=== PATIENT | female | born 1940 | race Caucasian/White ===

== ENCOUNTER 2021-01-27 10:12 | Outpatient (REF) | payer MEDICARE, SELFPAY ==
--- NOTE | 2021-01-27 17:31 | PFT_ITS ---
INDICATION: Bronchitis, COPD. SPIROMETRY: The FEV1 to FVC of 62% with an FEV1 of 1 L which is 56% predicted, an FVC of 1.58 L which is 66% predicted. No significant response to bronchodilators noted. The maximum voluntary ventilation 53% predicted. To note, the [id number] was 26% predicted. LUNG VOLUMES: Total lung capacity 95% predicted. DIFFUSION CAPACITY: DLCO 62% predicted. COMPARISON: None available. INTERPRETATION: There is an obstructive ventilatory defect consistent moderate to severe COPD. No significant response to bronchodilators noted. The patient does have significant small airways disease. There is also moderate decrease in maximum voluntary ventilation secondary to deconditioning and also the possibility of worsening dynamic inspiratory capacity. Lung volumes do demonstrate a trend of air trapping. The patient does have a mild to moderate diffusion impairment. Clinical correlation warranted. MD CHOCO Rodriguez/MODL / [id number]
== END 2021-01-27 10:13 | disposition home or self-care (01) ==
LOC: HO.RESP 10:12
PROVIDERS: Visit Provider Hospitalist
DX: J41.0 Simple chronic bronchitis (principal)
CPT/HCPCS: 94060; 94727; 94729; 99212

== ENCOUNTER → 2022-01-18 12:49 | Outpatient (BNVA) | payer MEDICARE, SELFPAY | PROVIDERS: PCP Nurse Practitioner Gerontology; Visit Provider Hospitalist | DX: J41.0 Simple chronic bronchitis (principal); R01.1 Cardiac murmur, unspecified; Z79.899 Other long term (current) drug therapy | CPT/HCPCS: 99212 ==

== ENCOUNTER → 2023-02-01 13:49 | Outpatient (BNVA) | payer MEDICARE, SELFPAY | PROVIDERS: PCP Nurse Practitioner Gerontology; Visit Provider Hospitalist | DX: J41.0 Simple chronic bronchitis (principal); R01.1 Cardiac murmur, unspecified; Z87.891 Personal history of nicotine dependence; Z79.899 Other long term (current) drug therapy | CPT/HCPCS: 99212 ==

== ENCOUNTER 2024-02-02 15:26 | Outpatient (AMB) | payer MEDICARE, SELFPAY ==
--- NOTE | 2024-02-02 15:31 | MHC.OFFVIS ---
Vital Signs 02/02/24 15:32 Height 5 ft 2 in Weight 125 lb BMI 22.9 Pulse 52 Pulse Source Pulse Oximeter Pulse Oximetry (%) 95 Oxygen Delivery Method Room Air Intake Visit Reasons: COPD Manager Strategy & Account Required: No Allergies azathioprine [Imuran] Allergy (Severe, Verified 02/02/24 15:33) Infection losartan Allergy (Severe, Verified 02/02/24 15:33) Swelling Lips HPI Comments Details: The patient is a 83-year-old woman with a known history of COPD. Her last PFTs demonstrating an FEV1 of 1.08 L. the patient has been on Anoro with good effect. She was participating in pulmonary rehabilitation, but, now she just walking at home is staying busy in active. She does have cough a ing at times but usually nonproductive. Mild in severity. She is able to sleep well at nighttime. She denies any headaches. She is having more respiratory symptoms with issue mid 80 but she stay indoors. We talked about the importance of looking at the air quality including the pollution level, low ground [place] and following the humidity. During the next visit will plan to do an x-ray and pulmonary function studies. If however she develops any worsening symptoms or any new symptoms prior to that she is to call for early evaluation. 01/27/2021 the patient is here for pulmonary follow-up visit. Overall she is doing well. She states that during the pandemic she state home a lot. She gained weight and she has not been as active. This is concerned her because she knows that her respiratory capacity has decreased. She does have shortness of breath with activity. She does not use oxygen. She does use her rescue inhaler prior to exercise otherwise she typically does not needed. She takes a maintenance medication daily without any issues of adherence. She did undergo pulmonary function studies which we personally reviewed demonstrating a moderate to severe obstructive ventilatory defect. It appears that based on her PFTs several years ago they are stable. I reassured her that it appears that her lung capacity is staining very well. Her diffusing capacity is also reassuring to be in the mid 60s. Patient is wondering what other activities she can not participate on and I did tell her that she can consider getting a Harmonica in working on her airway resistance been continue to walk and exercise regularly. The patient also will undergo a chest x-ray. 01/18/2022 the patient is here for a pulmonary follow-up visit. She consented to do relatively well. The patient has been on the Anoro daily. We did talk about additional therapies but at this point she is content with her medication. She continues to have dyspnea on exertion. Has not seem to worsen. Moderate severity. The patient does have moderate to severe COPD based on her last PFTs. Will request a chest x-ray at this time. In the meantime she continues to have a systolic murmur. She did follow-up with cardiology seems to be stable and be continued to be monitor closely. Otherwise the patient is without any other complaints. 02/01/2023 the patient is here for a pulmonary follow-up visit. The patient is doing very well. She has been seen since last year. She continues use the Anoro with very good effect. Has not required any prednisone. She does not require rescue inhaler. The patient does have a murmur but she has an echocardiogram scheduled for the summer. 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 Does not appear to have any sequela of any symptoms. She did not have an x-ray but will have an x-ray for next visit. In addition to that we did review her last PFTs demonstrating moderate COPD. Otherwise patient is doing well will hold off on additional PFTs specially since the patient is doing well. 02/02/2024 the patient is here for a pulmonary follow-up visit. Overall the patient has been doing well since last spoke. She does continue to use the Anoro daily. She also uses the rescue inhaler prior to exercise the seems to be working well for her. 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 No complications. The patient still feeling shortness of breath. She is participating in the cardiac rehab. Afterwards I did recommend she consider pulmonary rehab or online rehabilitation. She does have a treadmill and she will continue to exercise regularly. She did have a chest x-ray back in July 2023 which I personally reviewed. The patient does have increased cardiac size in the aortic valve is in place. No underlying acute lung conditions noted. The patient will also undergo a pacemaker placement. I hope that this also helps her respiratory symptoms and her energy. Otherwise patient is without any other complaints. She will get her Prevnar 20 vaccine whenever still and she also will get her RSV and FLU vaccine in the fall. [facility] Medical History (Updated 01/18/22 @ 13:09 by Satinder Salinas MD) COPD (chronic obstructive pulmonary disease) Social History (Updated 01/18/22 @ 13:03 by LEOBARDO Rivera) Patient Tobacco Use Status: Former Tobacco user Tobacco use type: Cigarette Years Smoked: 11 years old Review of Systems Const Denies night sweats ENT Denies change in voice, Denies lip swelling, Denies mouth pain, Reports nasal congestion, Reports nasal discharge and Denies tongue swelling Card Denies chest pain and Reports dyspnea on exertion Resp Reports cough and Reports dyspnea on exertion GI Denies abdominal pain Musc Denies no additional complaints Neuro Denies Neuro-related abnormal movements Psych Denies no additional complaints Quinton/Lymph Denies easy bleeding and Denies lymphadenopathy Aller/Immun Denies lip swelling and Denies tongue swelling Physical Exam Vital Signs: Last Vital Signs Pulse 52 02/02/24 15:32 Pulse Ox 95 02/02/24 15:32 Oxygen Delivery Method Room Air 02/02/24 15:32 BMI result Body Mass Index 22.9 Const General: alert Neck Neck: Yes normal visual inspection, Yes full ROM and Yes no lymphadenopathy Chest Chest palpation & inspection: normal inspection of the chest Resp Auscultation: no wheezes and diminished lung sounds Cardio Rate: regular rate Rhythm: regular rhythm Heart sounds: S1 normal heart sound present, S2 normal heart sound present and Murmur heart sound present systolic III/ GI Palpation (GI): Soft to palpation and nontender Auscultation: normal bowel sounds Skin General skin exam: rashes and/or lesions noted Assessment & Plan Assessment & Plan (1) COPD (chronic obstructive pulmonary disease): Code(s): J44.9 - Chronic obstructive pulmonary disease, unspecified Category: Medical Qualifiers: COPD type: chronic bronchitis Chronic bronchitis type: simple Qualified Code(s): J41.0 - Simple chronic bronchitis (2) Murmur: Code(s): R01.1 - Cardiac murmur, unspecified Category: Medical Plan Continue Anoro ALEX as needed and prior to exercise Awaiting PM placement F/U 12 months Medications: New albuterol sulfate 90 mcg/actuation 2 inhalations inhalation Q6H PRN 18 grams 12RF shortness of breath or wheezing 30 days J44.9 - Chronic obstructive pulmonary disease, unspecified Coding Level of Care Code Est Pt Level 4 (15723) Diagnoses Simple chronic bronchitis J41.0 COPD type: chronic bronchitis Chronic bronchitis type: simple Murmur R01.1 Time Spent (min) 17
[2024-02-02 15:32] VITALS: PULSE 52; O2SAT 95; BMI 22.9
== END 2024-02-02 15:55 | disposition home or self-care (01) ==
PROVIDERS: PCP Nurse Practitioner Gerontology; Visit Provider Hospitalist
DX: J41.0 Simple chronic bronchitis (principal); R01.1 Cardiac murmur, unspecified
CPT/HCPCS: 99214

== ENCOUNTER → 2024-02-02 15:26 | Outpatient (BNVA) | payer MEDICARE, SELFPAY | PROVIDERS: PCP Nurse Practitioner Gerontology; Visit Provider Hospitalist | DX: J41.0 Simple chronic bronchitis (principal); R01.1 Cardiac murmur, unspecified | CPT/HCPCS: 99212 ==

== ENCOUNTER 2025-02-05 15:25 | Outpatient (AMB) | payer MEDICARE, SELFPAY ==
[2025-02-05 15:27] VITALS: BP 148/56; PULSE 60; O2SAT 95; BMI 24.4
--- NOTE | 2025-02-05 15:27 | MHC.OFFVIS ---
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 Her last PFTs demonstrating an FEV1 of 1.08 L. the patient has been on Anoro with good effect. She was participating in pulmonary rehabilitation, but, now she just walking at home is staying busy in active. She does have cough a ing at times but usually nonproductive. Mild in severity. She is able to sleep well at nighttime. She denies any headaches. She is having more respiratory symptoms with issue mid 80 but she stay indoors. We talked about the importance of looking at the air quality including the pollution level, low ground [place] and following the humidity. During the next visit will plan to do an x-ray and pulmonary function studies. If however she develops any worsening symptoms or any new symptoms prior to that she is to call for early evaluation. 01/27/2021 the patient is here for pulmonary follow-up visit. Overall she is doing well. She states that during the pandemic she state home a lot. She gained weight and she has not been as active. This is concerned her because she knows that her respiratory capacity has decreased. She does have shortness of breath with activity. She does not use oxygen. She does use her rescue inhaler prior to exercise otherwise she typically does not needed. She takes a maintenance medication daily without any issues of adherence. She did undergo pulmonary function studies which we personally reviewed demonstrating a moderate to severe obstructive ventilatory defect. It appears that based on her PFTs several years ago they are stable. I reassured her that it appears that her lung capacity is staining very well. Her diffusing capacity is also reassuring to be in the mid 60s. Patient is wondering what other activities she can not participate on and I did tell her that she can consider getting a Harmonica in working on her airway resistance been continue to walk and exercise regularly. The patient also will undergo a chest x-ray. 01/18/2022 the patient is here for a pulmonary follow-up visit. She consented to do relatively well. The patient has been on the Anoro daily. We did talk about additional therapies but at this point she is content with her medication. She continues to have dyspnea on exertion. Has not seem to worsen. Moderate severity. The patient does have moderate to severe COPD based on her last PFTs. Will request a chest x-ray at this time. In the meantime she continues to have a systolic murmur. She did follow-up with cardiology seems to be stable and be continued to be monitor closely. Otherwise the patient is without any other complaints. 02/01/2023 the patient is here for a pulmonary follow-up visit. The patient is doing very well. She has been seen since last year. She continues use the Anoro with very good effect. Has not required any prednisone. She does not require rescue inhaler. The patient does have a murmur but she has an echocardiogram scheduled for the summer. 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 Does not appear to have any sequela of any symptoms. She did not have an x-ray but will have an x-ray for next visit. In addition to that we did review her last PFTs demonstrating moderate COPD. Otherwise patient is doing well will hold off on additional PFTs specially since the patient is doing well. 02/02/2024 the patient is here for a pulmonary follow-up visit. Overall the patient has been doing well since last spoke. She does continue to use the Anoro daily. She also uses the rescue inhaler prior to exercise the seems to be working well for her. 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 No complications. The patient still feeling shortness of breath. She is participating in the cardiac rehab. Afterwards I did recommend she consider pulmonary rehab or online rehabilitation. She does have a treadmill and she will continue to exercise regularly. She did have a chest x-ray back in July 2023 which I personally reviewed. The patient does have increased cardiac size in the aortic valve is in place. No underlying acute lung conditions noted. The patient will also undergo a pacemaker placement. I hope that this also helps her respiratory symptoms and her energy. Otherwise patient is without any other complaints. She will get her Prevnar 20 vaccine whenever still and she also will get her RSV and FLU vaccine in the fall. 02/05/2025 the patient is here for pulmonary follow-up visit. Overall the patient is doing well. She did get a pacemaker back in January and she tolerate that well. She has been doing well on the Anoro. Has not had to use her rescue inhaler. Subsequently in early September the patient developed COVID-19. Then was complicated by significant GI symptoms and she was admitted to the hospital with palpitations tachycardia and dehydration. Then she had a CTA which I personally reviewed demonstrating bilateral airspace disease and bronchiolitis treating budding and pleural effusions. She was treated and she was released. She has not had any imaging since then. Will go ahead and request a chest x-ray. She does feel like she is getting back to the baseline although she does feel a little weak. She does tolerate the Anoro regularly. And she is doing well without any significant abnormalities on her physical exam except for some diminished breath sounds. She is going to work on deep breathing exercises and walking. The patient should also get a chest x-ray and should follow-up with me in a year. She has any issues prior to this she will call for an earlier assessment. [facility] Medical History (Updated 01/18/22 @ 13:09 by Satinder Salinas MD) COPD (chronic obstructive pulmonary disease) Social History Patient Tobacco Use Status: Former Tobacco user Tobacco use type: Cigarette Years Smoked: 11 years old Review of Systems Const Denies chills, Denies fatigue, Denies fever(s), Denies weight gain and Denies weight loss ENT Denies dizziness, Denies lip swelling and Denies tongue swelling Card Denies chest pain, Denies leg edema, Denies lightheadedness, Denies palpitations, Reports dyspnea on exertion, Denies orthopnea and Denies other Resp Reports cough and Reports dyspnea on exertion GI Denies hematochezia and Denies change in stool character Musc Denies abnormal gait, Denies muscle weakness, Denies numbness, Denies radiating pain into limb and Denies tingling Neuro Denies abnormal gait, Denies dizziness, Denies numbness and Denies tingling Psych Denies no additional complaints Endo Denies fatigue and Denies palpitations Quinton/Lymph Denies easy bleeding and Denies lymphadenopathy Aller/Immun Denies lip swelling and Denies tongue swelling Physical Exam Vital Signs: Last Vital Signs Pulse 60 02/05/25 15:27 BP 148/56 H 02/05/25 15:27 Pulse Ox 95 02/05/25 15:27 Oxygen Delivery Method Room Air 02/05/25 15:27 BMI result Body Mass Index 24.4 Const General: alert Neck Neck: Yes normal visual inspection, Yes full ROM and Yes no lymphadenopathy Chest Chest palpation & inspection: normal inspection of the chest Resp Effort & Inspection: normal respiratory effort Auscultation: no wheezes and diminished lung sounds Cardio Rate: regular rate Rhythm: regular rhythm Heart sounds: S1 normal heart sound present, S2 normal heart sound present and Murmur heart sound present systolic III/ GI Palpation (GI): Soft to palpation and nontender Auscultation: normal bowel sounds Skin General skin exam: rashes and/or lesions noted Assessment & Plan Assessment & Plan (1) COPD (chronic obstructive pulmonary disease): Code(s): J44.9 - Chronic obstructive pulmonary disease, unspecified Category: Medical Qualifiers: COPD type: chronic bronchitis Chronic bronchitis type: simple Qualified Code(s): J41.0 - Simple chronic bronchitis (2) Murmur: Code(s): R01.1 - Cardiac murmur, unspecified Category: Medical Plan Continue Anoro ALEX as needed and prior to exercise CXR F/U 6-12 months Orders: Orders XR chest 2V Today J41.0 - Simple chronic bronchitis Medications: Refilled umeclidinium-vilanterol 62.5-25 mcg/actuation (Anoro Ellipta) 1 inh inhalation DAILY 180 ea 3RF Coding Level of Care Code Est Pt Level 4 (82706) Complex EM visit Add On G2211 Diagnoses Simple chronic bronchitis J41.0 COPD type: chronic bronchitis Chronic bronchitis type: simple Murmur R01.1 Time Spent (min) 17
--- OUTSIDE RECORDS SUMMARY | 2025-02-05 16:16 | XMS_ITS | Clinical Summary ---
Author Organization [facility] Address [address] [place] [address] Care Team Providers Care Microbiology Supervisor Name Role Phone Beryl Gray NP Primary Care Provider [phone] Allergies Active Allergy Reactions Criticality Noted Date Comments Azathioprine 03/02/2016 Losartan 02/07/2018 Medications Medication Sig Dispensed Refills Start Date End Date Status amLODIPine (NORVASC) tablet 10 mg Take 10 mg by mouth daily. 0 Active simvastatin (ZOCOR) tablet 10 mg Take 10 mg by mouth every night at bedtime. 0 Active hydrochlorothiazide (HYDRODIURIL) tablet 25 mg Take 25 mg by mouth daily. 0 Active carvedilol (COREG) 12.5 MG tablet Take 12.5 mg by mouth 2 (two) times a day. 25mg in evening 0 Active diphenoxylate-atropi ne (LOMOTIL) 2.5-0.025 MG per tablet Take 1 tablet by mouth 2 (two) times a day as needed for diarrhea. 0 Active mesalamine (LIALDA) 1.[address] tablet Take 1,200 mg by mouth daily. 2 tabs 0 Active levothyroxine (SYNTHROID, LEVOXYL) tablet 137 mcg Take 137 mcg by mouth every morning on an empty stomach. Every other day Odd days 0 Active traZODone (DESYREL) 50 MG tablet every night at bedtime. 0 12/09/2015 Active aspirin EC 325 MG tablet Take 325 mg by mouth daily. 1/2 tab 0 Active Cholecalciferol (VITAMIN D PO) Take by mouth daily. 0 Active Multiple Vitamins-Minerals (THERA M PLUS) TABS tablet Take 1 tablet by mouth daily. 0 Active albuterol (PROVENTIL HFA;VENTOLIN HFA) 108 (90 BASE) MCG/ACT inhaler Inhale 2 puffs into the lungs every 6 (six) hours as needed for wheezing. 0 Active LORazepam (ATIVAN) 0.5 MG tablet Take 0.5 mg by mouth every 6 (six) hours as needed for anxiety. 0 Active amLODIPine-benazepri l (LOTREL) 10-20 MG per capsule Take 1 capsule by mouth daily. 0 11/12/2020 Active mirtazapine (REMERON) 30 MG tablet Take 30 mg by mouth every night at bedtime. 0 04/02/2021 Active levothyroxine (SYNTHROID) tablet 100 mcg TAKE 1 AND 1/2 TABLETS BY MOUTH 1 DAY A WEEK AND 1 TAB 6 DAYS A WEEK ONCE A DAY 0 03/03/2021 Active Umeclidinium-Vilante rol 62.5-25 MCG/INH AEPB Inhale 1 puff into the lungs. 0 01/05/2018 Active Mirtazapine (REMERON PO) mirtazapine 0 Active Probiotic Product (Probiotic + Fruita-3) CAPS Take by mouth. 0 Active latanoprost (XALATAN) 0.005 % ophthalmic solution 1 drop. 0 Activ e amoxicillin (AMOXIL) 500 MG capsule TAKE 4 CAPSULES 1 HOUR PRIOR TO DENTAL APPOINTMENT 0 03/16/2021 Active Social History Tobacco Use Types Packs/Day Years Used Date Smoking Tobacco: Former Alcohol Use Standard Drinks/Week Comments Yes 0 (1 standard drink = 0.6 oz pur e alcohol) occ wine Sex and Gender Information Value Date Recorded Sex Assigned at Not on file Gender Identity Not on file Sexual Orientation Not on file Job Start Date Occupation Industry Not on file Not on file Not on file Last Filed Vital Signs Vital Sign Reading Time Taken Comments Blood Pressure 146/59 03/04/2016 12:00 PM EDT Pulse 54 03/04/2016 12:00 PM EDT Temperature 36.3 ??C (97.3 ??F) 03/04/2016 11:30 AM E DT Respiratory Rate 12 03/04/2016 12:00 PM EDT Oxygen Saturation 93% 03/04/2016 12:00 PM EDT Inhaled Oxygen Concentration - - Weight 56.7 kg (125 lb) 04/29/2021 9:20 AM EDT Height 157.5 cm (5' 2 ) 04/29/2021 9:20 AM EDT Body Mass Index 22.86 04/29/2021 9:20 AM EDT Plan of Treatment Health Maintenance Due Date Last Done Comments Depression Screening 1953 Preventative Health Evaluation 1959 DTap / Tdap / Td (1 - Tdap) 1960 Fall Risk Assessment 2006 Osteoporosis Screening (DEXA Scan) 2006 RSV Adult > 60+ Yrs or (1 - 1-dose 75+ series) 2016 Pneumococcal Vaccine (2 of 2 - PPSV23 or PCV20) 11/21/2016 11/21/2015 COVID-19 Vaccine (3 - season) 2024 12/04/2020, 11/14/2020 Influenza Vaccine (#1) 2024 , 07/15/2019, 07/06/2018, Additional history exists Shingrix-Zoster Vaccine Completed 09/22/2020, 07/16 Hepatitis B Vaccines Aged Out No long er eligible based on patient's age to complete this topic RSV Ped < 20 months Aged Out No longe r eligible based on patient's age to complete this topic Advance Directives For more information, please contact: [phone] Latest Code Status on File Code Status Date Activated Date Inactivated Comments Full Code 03/04/2016 1:06 PM 03/04/2016 7:04 PM Discuss ed pre op Care Teams Microbiology Supervisor Relationship Specialty Start Date End Date Beryl Gray NP [address] [place] [address] PCP - General Nurse Practitioner 04/15/21
--- OUTSIDE RECORDS SUMMARY | 2025-02-05 16:16 | XMS_ITS | Clinical Summary ---
Author Organization [address] [place] [address] [place] [phone] Phone Care Team Providers Care Senior Landscape Architect Name Role Phone Beryl Gray NP Primary Care Provider [phone] Allergies Active Allergy Reactions Criticality Noted Date Comments Azathioprine 02/07/2018 Medications diphenoxylate HCl/atropine (LOMOTIL ORAL) Take 2.5 mg by mouth 1 (one) time each day. Max Daily Amount: 2.5 mg Active multivitamin (MULTIPLE VITAMINS ORAL) Take by mouth. Active albuterol HFA (PROAIR HFA ; PROVENTIL HFA ; VENTOLIN HFA) 90 mcg/actuation inhaler Inhale 2 puffs by mouth every 6 (six) hours if needed (Wheezing or Shortness of Breath). 8 Active amiodarone (PACERONE) 200 mg tablet Take 1 tablet (200 mg total) by mouth 1 (one) time each day. 4 Active amLODIPine-kylie zepril (LOTREL) 10-20 mg per capsule Take 1 capsule by mouth 1 (one) time each day. 1 Active anastrozole (ARIMIDEX) 1 mg Take 1 tablet (1 mg total) by mouth 1 (one) time each day Active carvediloL (COREG) 25 mg tablet Take 12.5 mg by mouth 2 (two) times a day with meals. Active cholecalciferol (VITAMIN D-3) 25 mcg (1,000 unit) capsule Take 4,000 Int'l Units by mouth 1 (one) time each day. Active latanoprost (XALATAN) 0.005 % ophthalmic solution 1 drop at bedtime. Active levothyroxine (SYNTHROID, LEVOTHROID) 112 mcg tablet Take 1 tablet (112 mcg total) by mouth 1 (one) time each day. Active mirtazapine (REMERON) 30 mg tablet Take 1 tablet (30 mg total) by mouth at bedtime. Active simvastatin (ZOCOR) 10 mg tablet Take 1 tablet (10 mg total) by mouth at bedtime. Active umeclidinium-vi lanteroL (ANORO ELLIPTA) 62.5-25 mcg/actuation inhaler Inhale 1 puff by mouth 1 (one) time each day. 8 Active apixaban (Eliquis) 2.5 mg tablet TAKE 1 TABLET BY MOUTH EVERY 12 HOURS 180 tablet 2 4 Active mesalamine (Lialda) 1.2 gram EC tabletIndicatio ns:Ulcerative colitis (CMS/[facility] V24, CMS/[facility] V28) Take 1 tablet (1.2 g total) by mouth 2 (two) times a day. 60 each 2 5 04/07/20 25 Active mesalamine (Lialda) 1.2 gram EC tabletIndicatio ns:Ulcerative colitis (CMS/HCC V24, CMS/HCC V28) Take 1 tablet (1.2 g total) by mouth 2 (two) times a day. 60 each 2 5 01/08/20 25 Discontinu ed(Reorder ) Active Problems Problem Noted Date Diagnosed Date History of transcatheter aortic valve replacemen t (TAVR) 01/08/2025 Paroxysmal atrial flutter (CMS/HCC V24, CMS/HCC V28) 10/13/2024 Cardiac pacemaker in situ 06/25/2024 Overview (07/13/2024): Last Assessment & Plan: Continue with in office and remote device checks as per device clinic protocol. Diastolic dysfunction 06/25/2024 Overview (07/13/2024): Last Assessment & Plan: The patient was noted to have grade 3 diastolic dysfunction noted on echocardiogram 10/20/2023. She appears euvolemic on exam today and offers no exertional symptoms concerning for overt heart failure. She does report fatigue as discussed below but this appears to be something that has been occurring all the time and not just with activity; the cause for this remains a bit unclear. We discussed repeating an echocardiogram today for reevaluation of possible underlying cause, but this does not appear to be overly warranted and the patient declines at this time. If she has any symptoms concerning for heart failure, which we discussed at length today, she will notify our office at which time we will continue to readdress this. I've asked the patient to call if they develop worsening symptoms of heart failure such as increased shortness of breath, new or worsening cough, increased swelling in the legs or ankles, or weight gain of more than 2 pounds in one day or 4 pounds in one week. Fatigue 06/25/2024 Overview (07/13/2024): Last Assessment & Plan: The patient's biggest concern today is ongoing fatigue; however she reports that she is able to remain active on a regular basis without any worsening exertional symptoms. The cause for her fatigue remains a bit unclear; her TSH was elevated but her levothyroxine has been adjusted accordingly without any significant improvement in her symptoms as of yet. Metabolic panel was stable. She did not have a CBC checked at that time; I have ordered this today to evaluate for any possible underlying anemia that could be contributory. She appears euvolemic on exam today, and without any exertional symptoms or does not appear to be an obvious component of heart failure that could be contributory. The likelihood that ischemia is playing a role is very minimal given her lack of exertional symptoms in addition to normal coronaries noted on cardiac catheterization 06/16/2023. Secondary hypercoagulable state (CMS/HCC V24) Sick sinus syndrome (CMS/HCC V24, CMS/HCC V28) 0 06/25/2024 Overview (07/13/2024): Last Assessment & Plan: Now status post pacemaker 07/2023. Paroxysmal atrial fibrillation (CMS/HCC V24, CMS /HCC V28) 10/31/2023 Overview (07/13/2024): Last Assessment & Plan: The patient's most recent device check scanned into our system at this time is from February 2024 revealing an AT/AF burden of 2.1% with no new HVR alerts. I have reached out to our device clinic who reports that she did have a recent remote download completed on 05/31/2024 that has not yet been loaded into [employer]. It showed normal device function with 16 episodes of paroxysmal atrial fibrillation, the longest lasting 1 hour and 48 seconds all of which were rate controlled; exact burden of atrial fibrillation is unclear. Given this remote download, it appears as though heart rate is well-controlled on carvedilol. Will continue with amiodarone for rhythm control. She is able to exercise without any exertional symptoms, though reports feeling fatigued all the time. Her histograms were reviewed and looked favorable, rate response is on; as such, it does ot appear that her atrial fibrillation is contributory. She remains on Eliquis 2.5 mg twice daily for cardioembolic prophylaxis; this is the appropriate dose for her age of greater than 80 years, weight of approximately 60 kg, and creatinine of less than 1.5. We discussed the risks and benefits of continuing with anticoagulation and she wishes to continue with current plan. She is aware to seek emergent medical attention for uncontrolled bleeding, signs or symptoms of GI or other internal bleeding, or for any head injury. RBBB 06/20/2023 Nonrheumatic aortic (valve) stenosis 02/04/2021 Overview (07/13/2024): Last Assessment & Plan: Patient is now status post TAVR completed 07/2023. Post TAVR echo completed 10/20/2023 showed a well-seated and normally functioning bioprosthetic TAVR valve. She offers no symptoms concerning for worsening valvular dysfunction and no significant murmur noted on exam today. We will continue to monitor this with serial echocardiograms. We discussed signs and symptoms of worsening valvular dysfunction for which she should return to care or seek emergent medical attention as appropriate. Nonrheumatic mitral (valve) insufficiency 2020 Overview (07/13/2024): Last Assessment & Plan: Mild MR and mild TR on most recent echocardiogram 10/20/2023; we will continue to monitor this with serial echocardiograms. No significant murmur noted on exam today to suggest worsening valvular dysfunction. Nonrheumatic tricuspid valve regurgitation 02/04 Allergic rhinitis 04/18/2018 CAD (coronary artery disease) 04/18/2018 Overview (07/13/2024): S/p MO Last Assessment & Plan: Patient carries a diagnosis of coronary artery disease on her problem list; cardiac catheterization completed 06/16/2023 prior to TAVR being completed showed normal coronary arteries. Depression 04/18/2018 Thyroid nodule 04/18/2018 Macular hole 04/18/2018 Overview (07/13/2024): left Osteoporosis 04/18/2018 Pulmonary regurgitation 04/18/2018 Ulcerative colitis ([facility] V24, [facility] V28) Essential hypertension 02/25/2018 Overview (07/13/2024): Last Assessment & Plan: Blood pressure slightly elevated on initial check and on recheck today. The patient reports that she does have a blood pressure cuff at home and home checks have typically shown 130s over 60s. I have asked her to check her blood pressures and heart rate 1 to 2 hours after her morning medications for the next 1 to 2 weeks, relaying these readings to us at the end of this 2 weeks, sooner if blood pressures remain elevated above the 130s on a consistent basis. The patient verbalizes agreement; we will continue to readdress the need for adjustments in antihypertensives as indicated. At this time we will not make any changes to her current medical therapies; continue and Lotrel and carvedilol. Most recent metabolic panel was stable while on 05/01/2024. Chronic obstructive pulmonar y disease ([facility] V24, [facility] V28) 01/31/2018 Glaucoma 01/31/2018 Hyperlipidemia 01/31/2018 Overview (07/13/2024): Last Assessment & Plan: Patient's most recent lipid panel reveals an LDL of 68 which is at goal for this patient who has a history of coronary artery disease with an LDL goal of less than 70. Continue statin therapy. Hypothyroid 01/31/2018 Encounters Date Type Department Care Team Description 01/28/2025 Telephone [facility] [address] [place] [address] Steven Garay MD 01/08/2025 11:20 AM EDT Office Visit [facility] [address] [place] [address] Steven Garay MD Cardiac pacemaker in situ (Primary Dx); Chronic obstructive pulmonary disease, unspecified COPD type ([facility] V24, [facility] V28); Nonrheumatic aortic (valve) stenosis; Nonrheumatic mitral (valve) insufficiency; Nonrheumatic tricuspid valve regurgitation; Paroxysmal atrial flutter ([facility] V24, [facility] V28); History of transcatheter aortic valve replacement (TAVR) 12/28/2024 8:45 PM EDT Ancillary Procedure [facility] [address] [place] [address] 12/05/2024 8:10 AM EDT Ancillary Procedure [facility] [address] [place] [address] from Last 3 Months Surgical History Surgery Date Site/Laterality Comments MASTECTOMY PROCEDURE: HISTORICAL MASTECTOMY ROTATOR CUFF REPAIR PROCEDURE: HISTORICAL ROTATOR CUFF REPAIR OTHER SURGICAL HISTORY PROCEDURE: HISTORICAL SUBTOTAL THYROIDECTOMY OTHER SURGICAL HISTORY PROCEDURE: [place] COLECTOMY PARTIAL W/ANASTOMOSIS; COMMENT: small bowel resection EYE SURGERY PROCEDURE: HISTORICAL EYE SURGERY FOOT SURGERY PROCEDURE: HISTORICAL FOOT SURGERY OTHER SURGICAL HISTORY 07/19/2017 PROCEDURE: HISTORY OTHER; COMMENT: PARATHYROIDECTOMY Medical History Medical History Date Comments Glaucoma 01/31/2018 DX:Glaucoma Hypothyroid 01/31/2018 DX:Hypothyroid Hyperlipidemia 01/31/2018 DX:Hyperlipidemi a Chronic obstructive pulmonar y disease (COPD) ([facility] V24, [facility] V28) 01/31/2018 DX:Chronic obstructi ve pulmonary disease (COPD) ([facility]) Hypertension 02/25/2018 DX:Hypertension CAD (coronary artery disease) 04/18/2018 DX :CAD (coronary artery disease); COMMENT: S/p MO Allergic rhinitis 04/18/2018 DX:Allergic rh initis Depression 04/18/2018 DX:Depression Macular hole 04/18/2018 DX:Macular hole; COMMENT: left Ulcerative colitis ([facility] V24, [facility] V28) 04/18/2018 DX:Ulcerative colitis ([facility]) Pulmonary regurgitation 04/18/2018 DX:Pulmo nary regurgitation Thyroid nodule 04/18/2018 DX:Thyroid nodul e IBD (inflammatory bowel disease) DX:IBD (inflammatory bowel disease) Multiple joint pain DX:Multiple joint pain Anxiety DX:Anxiety Breast cancer ([facility] V24, [facility] V28) DX:Breast cancer ([facility]); COMM ENT: LEFT Fatigue DX:Fatigue Insomnia DX:Insomnia Osteoarthritis DX:Osteoarthriti s Osteoporosis DX:Osteoporosis Vitamin D deficiency DX:Vitamin D deficiency Uninodular goiter DX:Uninodular goiter Psoriasis of vulva DX:Psoriasis of vulva Psoriasis DX:Psoriasis Family History Medical History Relation Name Comments Heart attack Father Other: valve repair Mother Relation Name Status Comments Father Mother Social History Tobacco Use Types Packs/Day Years Used Date Smoking Tobacco: Former Smokeless Tobacco: Never Alcohol Use Standard Drinks/Week Comments Not Currently 0 (1 standard drink = 0.6 oz pur e alcohol) Comments Unknown Sex and Gender Information Value Date Recorded Sex Assigned at Not on file Legal Sex Female 1:10 PM EST Gender Identity Not on file Sexual Orientation Not on file Obstetrics History Last Filed Vital Signs Vital Sign Reading Time Taken Comments Blood Pressure 129/70 01/08/2025 11:08 AM EDT Pulse 60 01/08/2025 11:08 AM EDT Temperature - - Respiratory Rate - - Oxygen Saturation 98% 01/08/2025 11:08 AM EDT Inhaled Oxygen Concentration - - Weight 60.3 kg (133 lb) 01/08/2025 11:08 AM EDT Height 157.5 cm (5' 2 ) 01/08/2025 11:08 AM EDT Body Mass Index 24.33 01/08/2025 11:08 AM EDT Plan of Treatment Upcoming Encounters Date Type Department Care Team (Late st Contact Info) Description 03/04/2025 10:00 AM EDT Ancillary Procedure [facility] [address] [facility] [address] [place] [address] Health Maintenance Due Date Last Done Comments DTaP,Tdap,and Td Vaccines (1 - Tdap) 1959 Pneumococcal Vaccine: 50+ Years (2 of 2 - PPSV23) 01/16/2016 11/21/2015 RSV Immunization Adult Patients (1 - 1-dose 75+ series) 2016 Cholesterol Screening (Lipid Panel) 08/30/2022 Depression Screening 08/30/2022 Falls Risk Assessment 08/30/2022 Osteoporosis Screening (Bone Density Screening) 08/30/2022 Social Influencers of Health Screening 08/30/2022 Medicare Annual Wellness Visit 12/01/2023 11/30/2022 COVID-19 Vaccine ( season) 2024 07/16/2023, 06/18/2022, 08/17/2021, Additional history exists Hypertension/CHF/CAD Annual BMP Blood Test 06/02/2024 06/02/2023 Zoster Vaccines Completed 09/22/2020, 07/16/2020 Influenza Vaccine Completed 07/06/2024, , 07/16/2022, Additional history exists HIB Vaccines Aged Out No longer eligi ble based on patient's age to complete this topic HPV Vaccines Aged Out No longer eligi ble based on patient's age to complete this topic Hepatitis A Vaccines Aged Out No long er eligible based on patient's age to complete this topic Hepatitis B Vaccines Aged Out No long er eligible based on patient's age to complete this topic IPV Vaccines Aged Out No longer eligi ble based on patient's age to complete this topic MMR Vaccines Aged Out No longer eligi ble based on patient's age to complete this topic Meningococcal ACWY Vaccine Aged Out N o longer eligible based on patient's age to complete this topic Meningococcal B Vaccine Aged Out No l onger eligible based on patient's age to complete this topic RSV Immunization Patients Under 20 months Aged Out No longer eligible based on patient's age to complete this topic Varicella Vaccines Aged Out No longer eligible based on patient's age to complete this topic Medical Devices Implanted Type Area Lump Inspector Device Identifier Shelf Expiration Date Model / Serial / Lot [id number] Assurity Mri(Tm) [id number] Implanted: (Quantity not on file) Cardiac Pacemaker [facility] [employer] 2272 ASSURITY MRI(TM) / [id number] / Procedures Procedure Name Priority Date/Time Associated Diagnosis Comments CARDIAC DEVICE CHECK- REMOTE- MURJ Routine 12/28/2024 8:40 PM EDT CARDIAC DEVICE CHECK- REMOTE- MURJ Routine 12/05/2024 8:06 AM EDT ANNUAL BMP BLOOD TEST Routine 06/02/2023 from Last 3 Months or Most Recently Relevant to Health Maintenance Results * Cardiac device check - Remote- MURJ (12/28/2024 8:40 PM EDT) Only the most recent of2 resultswithin the time period is included. Date Time Interrogation Session [id number] CV DEVICE CHECK Type Interrogation Session Remote Scheduled CV DEVICE CHECK Implantable Pulse Generator Lump Inspector [employer] CV DEVICE CHECK Implantable Pulse Generator Type IPG CV DEVICE CHECK Implantable Pulse Generator Model 2272 Assurity MRI(TM) CV DEVICE CHECK Implantable Pulse Generator Serial Number [id number] CV DEVICE CHECK Implantable Pulse Generator Implant Date 20240209 CV DEVICE CHECK Battery Remaining Percentage 95.50 CV DEVICE CHECK Battery Remaining Longevity 125.0 CV DEVICE CHECK Battery Voltage 3.020 CV D EVICE CHECK Battery TAXATION AGENT Trigger 2.600 CV DEVICE CHECK Battery Status Middle of Service CV DEVICE CHECK Brandan Statistic RA Percent Paced 97.00 CV DEVICE CHECK Brandan Statistic RV Percent Paced 1.00 CV DEVICE CHECK Atrial Tachy Statistic AT/AF [place] Percent 1.00 CV DEVICE CHECK Lead Channel Sensing Intrinsic Amplitude 1.600 CV DEVICE CHECK Lead Channel Setting Sensing Sensitivity 0.30 CV DEVICE CHECK Lead Channel Impedance Value 450 CV DEVICE CHECK Lead Channel Pacing Threshold Amplitude 0.375 CV DEVICE CHECK Lead Channel Pacing Threshold Pulse Width 0.4 CV DEVICE CHECK Lead Channel RA Pacing Threshold Date 2024-05-31 CV DEVICE CHECK Lead Channel Setting Pacing Amplitude 1.500 CV DEVICE CHECK Lead Channel Setting Pacing Pulse Width 0.4 CV DEVICE CHECK Lead Channel Sensing Intrinsic Amplitude 7.700 CV DEVICE CHECK Lead Channel Setting Sensing Sensitivity 0.50 CV DEVICE CHECK Lead Channel Impedance Value 350 CV DEVICE CHECK Lead Channel Pacing Threshold Amplitude 0.875 CV DEVICE CHECK Lead Channel Pacing Threshold Pulse Width 0.4 CV DEVICE CHECK Lead Channel RV Pacing Threshold Date 2024-05-31 CV DEVICE CHECK Lead Channel Setting Pacing Amplitude 1.125 CV DEVICE CHECK Lead Channel Setting Pacing Pulse Width 0.4 CV DEVICE CHECK Brandan Setting Mode (NBG Code) DDDR CV DEVICE CHECK Brandan Setting Lower Rate Limit 60 CV DEVICE CHECK Brandan Setting AT Mode Switch Rate 180 CV DEVICE CHECK Brandan Setting Maximum Tracking Rate 120 CV DEVICE CHECK Brandan Setting Maximum Sensor Rate 120 CV DEVICE CHECK Brandan Setting PAV Delay 250 CV DEVICE CHECK Brandan Setting [place] Delay 200 CV DEVICE CHECK Date of Service 2024-06-10 CV DEVICE CHECK Anatomical Region Laterality Modality Device Interroga tion 05/31/2024 7:52 AM EDT Impressions 06/05/2024 3:38 PM EDT Normal Remote: With Events * Normal Device Function * Events or Alerts: 16 (PAF / Longest ??1hr 48 sec / Rate Controlled / Meds include Eliquis * Battery: Battery is at 95.5%, 10.42 yrs * Sensing, impedance and thresholds reviewed * Programmed parameters reviewed * Presenting rhythm reviewed * Heart Rate Histograms reviewed Narrative Procedure Note Burak Arauz MD - 12/28/2024 IMPRESSION: Normal Remote: With Events * Normal Device Function * Events or Alerts: 16 (PAF / Longest 1hr 48 sec / Rate Controlled /Meds include Eliquis * Battery: Battery is at 95.5%, 10.42 yrs * Sensing, impedance and thresholds reviewed * Programmed parameters reviewed * Presenting rhythm reviewed * Heart Rate Histograms reviewed Burak Arauz MD CV IMPLANTABLE CARDIAC DEV ICE PROCEDURES Final Result * Annual BMP Blood Test (06/02/2023) Annual BMP Blood Test Abstracted Historical Provider HEALTH MAINTENANCE Final Result from Last 3 Months or Most Recently Relevant to Health Maintenance Insurance [facility] MEDICARE MEDICAID - [place] Care Teams Senior Landscape Architect Relationship Specialty Start Date End Date Beryl Gray NP [address] [facility] [place] [address] PCP - General Nurse Practitioner 02/07/18
--- OUTSIDE RECORDS SUMMARY | 2025-02-05 16:16 | XMS_ITS | Patient Health Record ---
Author Organization [facility] Address [address] [place] [address] Care Team Providers Care Venetian Blind Cleaner Name Role Phone DAMON PEREZ NP Primary Care Provider Rema Weir Unavailable [phone] Allergies Allergen (clinical drug ingredient) Drug/Non Drug Allergy documented on EMR Reaction Allergy Type Onset Date Status azathioprine IMURAN Unknown Drug Allergy Acti ve Reason For Referral No Information Medications Medication SIG (Take, Route, Frequency, Duration) Notes Start Date End Date Status Vitamin D3 2000 UNIT 2 tablets Orally On ce a day [facility] 07/26/2014 Active Simvastatin 10 MG 1 tablet Orally Once a day [facility] 07/26/2014 Active Multivitamins 1 ORAL daily for [facility] 07/26/2014 Active Lialda 1.2GM 1 tablet ORAL twice a day [facility] 07/26/2014 Active Levoxyl 100 MCG 1 tablet on an empty stomach in the morning Orally Once a day [facility] 07/26/2014 Active Latanoprost 0.005% Ophthalmic EVERY OTHER NIGHT for [facility] 07/26/2014 Active Lotrisone 1-0.05 % 1 application to affected area Externally once a night X14 nights then as needed for 14 days 05/16/2019 Active Diphenoxylate-Atropine 2.5-0.025MG 1-2 TABS ORAL daily for [facility] 07/26/2014 Active Aspirin EC 325 MG 1/2 TAB Orally daily [facility] 07/26/2014 Active hydroCHLOROthiazide 12.5 MG 1 capsule in the morning Orally Once a day for 30 day(s) Active Carvedilol 12.5 MG 1 Orally twice daily [facility] 07/26/2014 Active Ventolin HFA 108 (90 Base) MCG/ACT 2 puffs as needed Inhalation Active Anoro Ellipta 62.5-25 MCG/INH 1 puff Inh alation Once a day Active amLODIPine Besylate 10MG 1 ORAL daily for -3 [facility] 07/26 Active traZODone HCl 50 MG 1 tablet at bedtime as needed Orally Once a day Active Social History Tobacco Use: Social History Observation Description Date Details (start date - stop date) Former Smoker NA - NA Tobacco Use/Smoking Question Answer Notes Are you a former smoker How long has it been since you last smoked? > 10 years Alcohol Screen (Audit-C) Question Answer Notes Did you have a drink contain ing alcohol in the past year? Yes How often did you have a dri nk containing alcohol in the past year? Monthly or less (1 point) How many drinks did you have on a typical day when you were drinking in the past year? 1 or 2 drinks (0 point) Points 1 Interpretation Negative Sexual History Question Answer Notes Had sex in the past 12 months (vaginal, oral, or anal)? No Problems Problem Type SNOMED Code ICD Code Onset Dates Problem Status W/U Status Risk Notes Problem Incomplete uterovaginal prolapse (817566994) Incomplete uterovaginal prolapse (N81.2) Active confirmed Problem Herniation of rectum into vagina (257397309) Rectocele (N81.6) Active confirmed Problem Age-related osteoporosis (873581266) Age-related osteoporosis without current pathological fracture (M81.0) Active confirmed Problem Malignant neoplasm o f female breast (359582274) Malignant neoplasm of unspecified site of left female breast (C50.912) Active confirmed Problem Hyperparathyroidism (20436461) Hyperparathyroi dism, unspecified (E21.3) Active confirmed Problem Cystocele (165073963) Cystocele, unspecified (N81.10) Active confirmed Problem Malignant neoplasm o f female breast (340979991) Malignant neoplasm of other specified sites of female breast (174.8) Active confirmed Diag Plan Of Treatment Pending Test Test Name Order Date PTH, INTACT 05/20/2015 Insurance Providers Payer Name Payer Address Payer Phone Subscriber Number Group Number Insured Name Patient Relationship to Insured Coverage Start Date Coverage End Date MEDICARE [address] [place] [id number] JENNIFFER HOUGH Self - patient is the insured [employer] [address] [place] [address] [id number] JENNIFFER HOUGH Self - patient is the insured Medical (General) History Medical History History ICD Code Lt Rotator Cuff injury Malignant neoplasm of overlapping sites of left female breast C50.812 Age-related osteoporosis without current pathological fracture M81.0 Hyperparathyroidism, unspecified E21.3 Incomplete uterovaginal prolapse N81.2 Rectocele N81.6 Cystocele, unspecified N81.10 Surgical History Surgery Date(Month/Year) Lt Shoulder Surgery Lt Rotator Cuff Surgery Lt Mastectomy 1990 Foot Surgery Colonoscopy Hospitalization History Reason Date(Month/Year) 2 Vaginal Deliveries See Surgical Hx
--- OUTSIDE RECORDS SUMMARY | 2025-02-05 16:16 | XMS_ITS | Encounter Summary ---
Author Organization [facility] [place] [address] Care Team Providers Care Erp Engineer Name Role Phone Beryl Gray BALAJI Primary Care Provider Encounter Details Date Type Department Care Team (Late st Contact Info) Description 01/28/2025 Telephone [facility] - [facility] [address] [facility] [address] [place] [id number] Stevne Garay MD [address] [place] [address] Social History Tobacco Use Types Packs/Day Years Used Date Smoking Tobacco: Former Smokeless Tobacco: Never Alcohol Use Standard Drinks/Week Comments Not Currently 0 (1 standard drink = 0.6 oz pur e alcohol) Comments Unknown Sex and Gender Information Value Date Recorded Sex Assigned at Not on file Legal Sex Female 1:10 PM EST Gender Identity Not on file Sexual Orientation Not on file documented as of this encounter Progress Notes * Ramesh Wilson - 01/28/2025 11:32 AM EDT Medical Records Request Caller: Milka Calling from: [facility] Requesting provider's first & last name: Dr Dr Bennett Baker Direct Phone Number or Ext: [phone] What records are being requested: Office notes How far back: 01/08/25 What is it for: Records Needed by: as soon as possible documented in this encounter Plan of Treatment Upcoming Encounters Date Type Department Care Team (Late st Contact Info) Description 03/04/2025 10:00 AM EDT Ancillary Procedure [facility] - [address] [facility] [address] [place] [address] documented as of this encounter Visit Diagnoses Not on filedocumented in this encounter Care Teams Erp Engineer Relationship Specialty Start Date End Date Beryl Gray NP [address] [facility] [place] [address] PCP - General Nurse Practitioner 02/07/18 documented as of this encounter
== END 2025-02-05 15:50 | disposition home or self-care (01) ==
LOC: HO.HPS 15:25
PROVIDERS: PCP Nurse Practitioner Gerontology; Visit Provider Hospitalist
DX: J41.0 Simple chronic bronchitis (principal); R01.1 Cardiac murmur, unspecified
CPT/HCPCS: 99214; G2211

== ENCOUNTER → 2025-02-05 15:25 | Outpatient (BNVA) | payer MEDICARE, SELFPAY | PROVIDERS: PCP Nurse Practitioner Gerontology; Visit Provider Hospitalist | DX: J41.0 Simple chronic bronchitis (principal); R01.1 Cardiac murmur, unspecified | CPT/HCPCS: 99212 ==